=== PATIENT | male | born 1930 | race African-American/Black ===

== ENCOUNTER 2019-03-27 16:17 | Inpatient (IN) | payer OTHER ==
[~2019-03-27] VITALS: Ht 172.7 cm; Wt 108.4 kg
[2019-03-27 16:43] LABS: BASOPHILS % 0.4 % (0.0-2.0); EOSINOPHILS % 2.2 % (0.0-5.0); HEMATOCRIT. 42.2 % (42.0-52.0); HEMOGLOBIN. 13.4 g/dL (14.0-18.0); LYMPHOCYTES % 40.5 % (20.0-50.0); MEAN CORPUSCULAR HEMOGLOBIN 30.2 pg (28.0-32.0); MEAN CORPUSCULAR VOLUME 94.7 fL (80.0-94.0); MEAN PLATELET VOLUME 8.9 fl (7.4-10.4); MONOCYTES % 10.8 % (2.0-8.0); NEUTROPHILS % 46.1 % (40.0-76.0); PLATELET 226 x1000/uL (130-400); RED BLOOD CELL COUNT 4.45 mill/uL (4.7-6.1); RED CELL DISTRIBUTION WIDTH 17.5 % (11.6-14.6)
[2019-03-27 16:49] LABS: CHLORIDE 112 mEq/L (98-107); INR 1.1
[2019-03-27] MEDS ORDERED: ETOMIDATE 2MG/ML 10ML VIAL IV ONE (16:52)
[2019-03-27] MEDS ORDERED: SUCCINYLCHOLINE CHLORIDE 200MG/10ML IV ONE (16:52)
[2019-03-27 16:53] LABS: ETHANOL BLOOD < 10 mg/dL
[2019-03-27 16:56] LABS: LDL CHOLESTEROL 110 mg/dL (5-100)
[2019-03-27] MEDS ORDERED: PROPOFOL 10MG/ML 100ML 100 ML IV SCH ×2 (17:00→19:45)
[2019-03-27] MEDS ORDERED: SODIUM CHLORIDE 0.9% 1,000 ML IV ONE (17:15)
[2019-03-27] MEDS ORDERED: LEVETIRACETAM 500 MG IV ONE (17:15)
[2019-03-27 17:19] LABS: BG BASE EXCESS -0.6 mmol/L (-2.0-2.0); BG CARBOXYHEMOGLOBIN 0.8 % (0.5-1.5); BG DEOXYHEMOGLOBIN 0.2 % (0.0-5.0); BG FRACTION INSPIRED OXYGEN 100; BG HCO3 ACT 25.6 mmol/L (22.0-26.0); BG METHEMOGLOBIN 0.3 % (0.0-1.5); BG OXYGEN SATURATION 99.8 % (92.0-98.5); BG OXYHEMOGLOBIN 98.7 % (94.0-97.0); BG PCO2 48.1 mmHg (35.0-45.0); BG PH 7.344 (7.350-7.450); BG PO2 409.6 mmHg (75.0-100.0); BG SAMPLE SITE RIGHT RADIAL; BG TIDAL VOLUME(mL) 550 mL; BG TOTAL HEMOGLOBIN 14.4 g/dL (12.0-18.0); BG VENT MODE VENT - A/C; BG VENT RATE 16 set
[2019-03-27] MEDS ORDERED: IOHEXOL-350 100 ML BOTTLE ONE (19:03)
[2019-03-27 19:54] LABS: CLARITY URINE CLEAR (CLEAR); COLOR URINE YELLOW (YELLOW); KETONES URINE NEGATIVE (NEGATIVE); LEUKOCYTE ESTERASE URINE NEGATIVE (NEGATIVE); NITRITE URINE NEGATIVE (NEGATIVE); OCCULT BLOOD URINE TRACE (NEGATIVE); PH URINE 6.5 (4.5-8.0); PROTEIN URINE 3+ (NEGATIVE); SPECIFIC GRAVITY URINE 1.019 (1.005-1.030)
[2019-03-27 20:04] LABS: *AMPHETAMINES SCREEN URINE NEGATIVE (NEGATIVE); *BARBITURATES SCREEN URINE NEGATIVE (NEGATIVE); *BENZODIAZEPINES SCREEN URINE NEGATIVE (NEGATIVE); *COCAINE SCREEN URINE NEGATIVE (NEGATIVE)
[2019-03-27 20:05] LABS: CANNABINOID URINE SCREEN NEGATIVE (NEGATIVE); METHADONE URINE SCREEN NEGATIVE (NEGATIVE); OPIATES URINE SCREEN NEGATIVE (NEGATIVE); PHENCYCLIDINE URINE SCREEN NEGATIVE (NEGATIVE)
[2019-03-27] MEDS ORDERED: ASPIRIN 81MG TABLET PO NR (22:00)
[2019-03-27] MEDS ORDERED: HYDRALAZINE 20MG/ML VIAL IV ONE (22:30)
[2019-03-27 23:00] VITALS: BP 153/99
[2019-03-27 23:15] VITALS: BP 129/79
[2019-03-27 23:30] VITALS: BP 116/60
[2019-03-27 23:31] VITALS: BP 153/99
[2019-03-27 23:32] VITALS: BP 133/66
[2019-03-27] MEDS ORDERED: DEXTROSE 50% WATER 50ML SYRINGE IV PRN (23:45)
[2019-03-28] VITALS (80 sets, daily range): BP systolic 110–191; BP diastolic 51–134
[2019-03-28] MEDS: DEXT 5%/0.45% NACL 1000ML 1,000 ML IV SCH ×2 (00:25→18:46)
[2019-03-28] MEDS: PROPOFOL 10MG/ML 100ML 100 ML IV PRN ×3 (03:36→19:04)
[2019-03-28 05:47] LABS: BASOPHILS % 0.5 % (0.0-2.0); EOSINOPHILS % 1.7 % (0.0-5.0); HEMATOCRIT. 39.5 % (42.0-52.0); HEMOGLOBIN. 12.9 g/dL (14.0-18.0); LYMPHOCYTES % 21.8 % (20.0-50.0); MEAN CORPUSCULAR HEMOGLOBIN 30.3 pg (28.0-32.0); MEAN CORPUSCULAR VOLUME 93.1 fL (80.0-94.0); MEAN PLATELET VOLUME 9.2 fl (7.4-10.4); MONOCYTES % 12.8 % (2.0-8.0); NEUTROPHILS % 63.2 % (40.0-76.0); PLATELET 203 x1000/uL (130-400); RED BLOOD CELL COUNT 4.25 mill/uL (4.7-6.1); RED CELL DISTRIBUTION WIDTH 17.2 % (11.6-14.6)
[2019-03-28 05:52] LABS: CHLORIDE 112 mEq/L (98-107)
[2019-03-28 06:00] LABS: HDL CHOLESTEROL 62 mg/dL (40-59); LDL CHOLESTEROL 103 mg/dL (5-100)
[2019-03-28] MEDS: INSULIN LISPRO 100 UNITS/ML SUBCUT SCH ×3 (06:00→17:37)
[2019-03-28] MEDS: BLOOD SUGAR DIAGNOSTIC STRIP TEST SCH ×4 (06:03→17:37)
[2019-03-28] MEDS ORDERED: INSULIN LISPRO 100 UNITS/ML SUBCUT SCH (07:00)
[2019-03-28] MEDS: FAMOTIDINE 20MG TABLET PO SCH (09:32)
[2019-03-28] MEDS: ASPIRIN 81MG TABLET PO SCH (09:32)
[2019-03-28] MEDS: ENOXAPARIN 40MG/0.4ML SYR SUBCUT SCH (09:33)
[2019-03-28 11:26] LABS: BG BASE EXCESS -1.4 mmol/L (-2.0-2.0); BG CARBOXYHEMOGLOBIN 0.7 % (0.5-1.5); BG DEOXYHEMOGLOBIN 0.8 % (0.0-5.0); BG FRACTION INSPIRED OXYGEN 40; BG HCO3 ACT 20.5 mmol/L (22.0-26.0); BG METHEMOGLOBIN 0.3 % (0.0-1.5); BG OXYGEN SATURATION 99.2 % (92.0-98.5); BG OXYHEMOGLOBIN 98.2 % (94.0-97.0); BG PCO2 27.1 mmHg (35.0-45.0); BG PH 7.496 (7.350-7.450); BG PO2 142.7 mmHg (75.0-100.0); BG SAMPLE SITE RIGHT BRACHIAL; BG TIDAL VOLUME(mL) 550 mL; BG TOTAL HEMOGLOBIN 13.4 g/dL (12.0-18.0); BG VENT MODE VENT - A/C; BG VENT RATE 20 set
[2019-03-28] MEDS: AMMONIUM LACTATE 12% LOTION 240ML TOP SCH (17:39)
[2019-03-28] MEDS ORDERED: FURO-151 PO (17:56)
[2019-03-28] MEDS ORDERED: ASPI-1393 MT (17:56)
[2019-03-28] MEDS ORDERED: APIX2.5T PO (17:56)
[2019-03-28] MEDS ORDERED: METO25TA6 PO (17:56)
[2019-03-28] MEDS ORDERED: GLIP5TAB12 PO (17:56)
[2019-03-28] MEDS ORDERED: LIP40 PO (17:56)
[2019-03-28] MEDS ORDERED: LISI10TA5 PO (17:56)
[2019-03-28] MEDS ORDERED: NPH,100V SQ (19:43)
[2019-03-29] VITALS (90 sets, daily range): BP systolic 102–202; BP diastolic 64–138
[2019-03-29] MEDS: BLOOD SUGAR DIAGNOSTIC STRIP TEST SCH ×5 (00:22→23:26)
[2019-03-29] MEDS: PROPOFOL 10MG/ML 100ML 100 ML IV PRN (01:39)
[2019-03-29] MEDS: INSULIN LISPRO 100 UNITS/ML SUBCUT SCH ×5 (06:00→23:27)
[2019-03-29] MEDS ORDERED: PROPOFOL 10MG/ML 100ML 100 ML IV PRN (08:15)
[2019-03-29] MEDS: FAMOTIDINE 20MG TABLET PO SCH (08:29)
[2019-03-29] MEDS: ASPIRIN 81MG TABLET PO SCH (08:29)
[2019-03-29 08:37] LABS: BG BASE EXCESS 0.1 mmol/L (-2.0-2.0); BG CARBOXYHEMOGLOBIN 0.3 % (0.5-1.5); BG DEOXYHEMOGLOBIN 1.4 % (0.0-5.0); BG FRACTION INSPIRED OXYGEN 40; BG HCO3 ACT 21.7 mmol/L (22.0-26.0); BG METHEMOGLOBIN 0.3 % (0.0-1.5); BG OXYGEN SATURATION 98.6 % (92.0-98.5); BG PCO2 27.5 mmHg (35.0-45.0); BG PH 7.515 (7.350-7.450); BG SAMPLE SITE LEFT RADIAL; BG TIDAL VOLUME(mL) 550 mL; BG TOTAL HEMOGLOBIN 13.9 g/dL (12.0-18.0); BG VENT MODE VENT - A/C; BG VENT RATE 20 set
[2019-03-29] MEDS: ENOXAPARIN 40MG/0.4ML SYR SUBCUT SCH (08:38)
[2019-03-29] MEDS: AMMONIUM LACTATE 12% LOTION 240ML TOP SCH ×2 (08:48→18:32)
[2019-03-29] MEDS ORDERED: CLONIDINE 0.1MG TABLET PO PRN (09:00)
[2019-03-29] MEDS: AMLODIPINE 10MG TABLET PO SCH (09:56)
[2019-03-29] MEDS ORDERED: NICARDIPINE 50 MG in SODIUM CHLORIDE 0.9% 230 ML IV PRN (11:30)
[2019-03-29] MEDS ORDERED: NICARDIPINE 40MG/200ML PREMIX 200 ML IV PRN (11:30)
[2019-03-29] MEDS ORDERED: MORPHINE SULFATE 2 MG/ML CPJ (NOT FOR IM USE) IV PRN (11:45)
[2019-03-29] MEDS ORDERED: IPRATROPIUM/ALBUTEROL 0.5-3(2.5)MG/3ML NEB HHN PRN (11:45)
[2019-03-29] MEDS ORDERED: BISACODYL 5MG TABLET PO PRN (12:00)
[2019-03-29] MEDS: DOCUSATE SODIUM SUGAR FREE 100MG/10ML UDC NG SCH ×2 (12:47→18:33)
[2019-03-29] MEDS: LORAZEPAM 2MG/ML CPJ IV PRN ×2 (12:47→20:58)
[2019-03-29 15:25] LABS: CREATINE KINASE 154 IU/L (39-308)
[2019-03-29] MEDS: IPRATROPIUM/ALBUTEROL 0.5-3(2.5)MG/3ML NEB HHN SCH (20:36)
[2019-03-30] VITALS (37 sets, daily range): BP systolic 133–187; BP diastolic 71–125
[2019-03-30] MEDS: IPRATROPIUM/ALBUTEROL 0.5-3(2.5)MG/3ML NEB HHN SCH ×3 (02:57→13:37)
[2019-03-30] MEDS: LORAZEPAM 2MG/ML CPJ IV PRN ×2 (04:17→12:50)
[2019-03-30] MEDS: INSULIN LISPRO 100 UNITS/ML SUBCUT SCH ×3 (05:11→18:00)
[2019-03-30] MEDS: BLOOD SUGAR DIAGNOSTIC STRIP TEST SCH ×3 (05:11→18:44)
[2019-03-30 05:30] LABS: BASOPHILS % 0.2 % (0.0-2.0); EOSINOPHILS % 1.1 % (0.0-5.0); HEMATOCRIT. 40.9 % (42.0-52.0); HEMOGLOBIN. 13.3 g/dL (14.0-18.0); LYMPHOCYTES % 17.5 % (20.0-50.0); MEAN CORPUSCULAR HEMOGLOBIN 30.3 pg (28.0-32.0); MEAN CORPUSCULAR VOLUME 93.4 fL (80.0-94.0); MEAN PLATELET VOLUME 9.6 fl (7.4-10.4); MONOCYTES % 8.4 % (2.0-8.0); NEUTROPHILS % 72.8 % (40.0-76.0); PLATELET 201 x1000/uL (130-400); RED BLOOD CELL COUNT 4.38 mill/uL (4.7-6.1); RED CELL DISTRIBUTION WIDTH 17.3 % (11.6-14.6)
[2019-03-30] MEDS: FAMOTIDINE 20MG TABLET PO SCH (09:08)
[2019-03-30] MEDS: AMMONIUM LACTATE 12% LOTION 240ML TOP SCH ×2 (09:08→17:54)
[2019-03-30] MEDS: ASPIRIN 81MG TABLET PO SCH (09:09)
[2019-03-30] MEDS: AMLODIPINE 10MG TABLET PO SCH (09:09)
[2019-03-30] MEDS: ENOXAPARIN 40MG/0.4ML SYR SUBCUT SCH (09:09)
[2019-03-30] MEDS: DOCUSATE SODIUM SUGAR FREE 100MG/10ML UDC NG SCH ×2 (09:23→17:54)
[2019-03-30 10:20] LABS: BG BASE EXCESS 0.2 mmol/L (-2.0-2.0); BG CARBOXYHEMOGLOBIN 0.6 % (0.5-1.5); BG DEOXYHEMOGLOBIN 1.1 % (0.0-5.0); BG FRACTION INSPIRED OXYGEN 40; BG HCO3 ACT 22.7 mmol/L (22.0-26.0); BG METHEMOGLOBIN 0.2 % (0.0-1.5); BG OXYGEN SATURATION 98.9 % (92.0-98.5); BG OXYHEMOGLOBIN 98.1 % (94.0-97.0); BG PCO2 30.6 mmHg (35.0-45.0); BG PH 7.488 (7.350-7.450); BG PO2 138.3 mmHg (75.0-100.0); BG SAMPLE SITE RIGHT BRACHIAL; BG TIDAL VOLUME(mL) 550 mL; BG TOTAL HEMOGLOBIN 13.7 g/dL (12.0-18.0); BG VENT MODE VENT - A/C; BG VENT RATE 16 set
[2019-03-30] MEDS ORDERED: POTASSIUM CHLORIDE INJ 40 MEQ in DEXT 5% WATER 250 ML IV NR (11:00)
[2019-03-30 12:51] LABS: T4 FREE 1.55 ng/dL (0.76-1.46)
[2019-03-30 12:54] LABS: FOLIC ACID (FOLATE) SERUM 5.6 ng/mL (>5.38)
== END 2019-03-30 18:55 | disposition short-term general hospital (02) | DRG 208 ==
LOC: ER 16:26 → EDBEDREQTM 21:54 → EDBEDREQ 21:54 → ENRESERV 22:06 → MICUSO 22:53
PROVIDERS: ADMIT Family Medicine; ATTEND Family Medicine
PROC: 5A1945Z Respiratory Ventilation, 24-96 Consecutive Hours (ICD-10-PCS; 2019-03-27)
PROC: 0BH17EZ Insertion of Endotracheal Airway into Trachea, Via Natural or Artificial Opening (ICD-10-PCS; 2019-03-27)
PROC: 4A00X4Z Measurement of Central Nervous Electrical Activity, External Approach (ICD-10-PCS; principal; 2019-03-30)
DX: J96.01 Acute respiratory failure with hypoxia (principal); I50.43 Acute on chronic combined systolic (congestive) and diastolic (congestive) heart failure; G45.9 Transient cerebral ischemic attack, unspecified; E44.1 Mild protein-calorie malnutrition; I13.0 Hypertensive heart and chronic kidney disease with heart failure and stage 1 through stage 4 chronic kidney disease, or unspecified chronic kidney disease; N17.9 Acute kidney failure, unspecified; G93.40 Encephalopathy, unspecified; I48.20 Chronic atrial fibrillation, unspecified; E66.9 Obesity, unspecified; E11.22 Type 2 diabetes mellitus with diabetic chronic kidney disease; E78.00 Pure hypercholesterolemia, unspecified; E78.5 Hyperlipidemia, unspecified; N18.9 Chronic kidney disease, unspecified; Z68.36 Body mass index [BMI] 36.0-36.9, adult
CPT/HCPCS: 36415; 36600; 70496; 70551; 71045; 80048; 80061; 80305; 80320; 81003; 82140; 82375; 82550; 82607; 82746; 82805; 82962; 83036; 83721; 84439; 84443; 84478; 84481; 84484; 87070; 93005; 93306; 93880; 93970; 94002; 94003; 94640; 96374; 99285; J0330; J0360; J1650; J1953; J2060; J2270; J2704; J3480; J3490; J7030; J7050; J7060; J7620; Q9967; G0480